=== PATIENT | female | born 1990 | race American Indian/Alaskan Native ===

== ENCOUNTER 2021-01-07 17:15 | Emergency (ER) | payer OTHER ==
[2021-01-07 17:34] VITALS: BP 131/82
[2021-01-07] MEDS ORDERED: SODIUM CHLORIDE 0.9% 1000 ML 1,000 ML IV ONE (20:12)
[2021-01-07] MEDS ORDERED: KETOROLAC 30 MG/1 ML INJ IV ONE (20:12)
[2021-01-07] MEDS ORDERED: METOCLOPRAMIDE 10 MG/2 ML INJ IV ONE (20:14)
[2021-01-07] MEDS ORDERED: diphenhydrAMINE 50 MG/ML VIAL IV ONE (20:14)
[2021-01-07 20:55] LABS: Basophils # (Auto) 0.2 K/mm3 (0.0-0.1); Basophils % (Auto) 1.2 % (0.0-1.8); Eosinophils # (Auto) 0.7 K/mm3 (0.0-0.4); Eosinophils % (Auto) 3.5 % (0.0-4.3); Hematocrit 35.3 % (30.3-42.9); Hemoglobin 11.6 gm/dl (10.1-14.3); Lymphocytes # (Auto) 3.1 K/mm3 (1.2-5.4); Lymphocytes % (Auto) 15.7 % (13.4-35.0); Mean Corpuscular HGB Conc 33 % (30-34); Mean Corpuscular Volume 80 fl (79-97); Monocytes # (Auto) 1.9 K/mm3 (0.0-0.8); Monocytes % (Auto) 9.7 % (0.0-7.3); Platelet Count 435 K/mm3 (140-440); Red Blood Count 4.42 M/mm3 (3.65-5.03); Red Cell Distribution Width 14.6 % (13.2-15.2)
[2021-01-07 20:57] LABS: Alanine Aminotransferase 11 units/L (7-56); Albumin 4.3 g/dL (3.9-5); Blood Urea Nitrogen 9 mg/dL (7-17); Calcium 8.9 mg/dL (8.4-10.2); Hemolysis Index 16
[2021-01-07 21:00] LABS: BUN/Creatinine Ratio 13
--- NOTE | 2021-01-07 21:40 | Cat Scan Report ---
CT head/brain wo con INDICATION: Patient complains of a headache. TECHNIQUE: Routine CT head. All CT scans at this location are performed using CT dose reduction for A LENCHO by means of automated exposure control. COMPARISON: None. FINDINGS: Intracranial: Jimenez-white matter differentiation is maintained. No intracranial hemorrhage. No extra a xial collection. No hydrocephalus. No herniation. Sinuses: Paranasal sinuses and mastoid air cells are essentially clear. Orbits: Globes are intact. Calvarium: No acute fracture. IMPRESSION: 1. No acute intracranial abnormality. Signer Name: Boy Castorena MD Signed: 01/07/2021 9:35 PM Workstation Name: [id number]
--- NOTE | 2021-01-07 23:11 | XRay Report ---
CHEST 1 VIEW INDICATION / CLINICAL INFORMATION: cough. FINDINGS: SUPPORT DEVICES: None. HEART / MEDIASTINUM: No significant abnormality. LUNGS / PLEURA: No significant pulmonary or pleural abnormality. No pneumothorax. ADDITIONAL FINDINGS: No significant additional findings. IMPRESSION: 1. No acute findings. Signer Name: Bebo Momin MD Signed: 01/07/2021 11:07 PM Workstation Name: [id number]
[2021-01-07 23:13] LABS: Bilirubin,Urine NEG (Negative); Blood,Urine NEG (Negative); Color,Urine Straw (Yellow); Hyaline Casts,Urine 1 /LPF; Protein,Urine <15 mg/dL mg/dL (Negative); Urobilinogen,Urine < 2.0 mg/dL (<2.0)
--- NOTE | 2021-01-07 23:51 | Emergency Department Report ---
ED General Adult HPI - General Chief complaint: Headache Stated complaint: EYE PAINS Source: patient Mode of arrival: Ambulatory Limitations: No Limitations - History of Present Illness Initial comments: Patient is a 30-year-old -Mosotho female with no past medical history presents to the ED with complaint of acute onset persistent severe frontal sinus pressure and headache, nausea and vomiting, lack of appetite for the last 1 month, worse in the last 5 days. Patient states that she has previously been evaluated at [facility] emergency department for the same complaints in the last 1 month, and was advised that there was no acute abnormalities found. Patient also complains of persistent nasal and sinus congestion. Patient states that in the last 3 days she has not been able to eat because of intractable nausea and vomiting and worsening headache. Patient denies dizziness, syncope, palpitations, fever, chills, cough, sore throat, diarrhea, abdominal pain, chest pain, shortness of breath, traumatic injury or fall, neck pain, dysuria, urinary frequency and urgency or change in vision. MD Complaint: severe frontal headache, nausea and vomiting -: Sudden, month(s) (1) Location: head, face Radiation: non-radiation Severity scale (0 -10): 8 Quality: aching, sharp Consistency: constant Improves with: none Worsens with: none Associated Symptoms: denies other symptoms, headaches, loss of appetite, malaise, nausea/vomiting. denies: confusion, chest pain, cough, diaphoresis, fever/chills, rash, seizure, shortness of breath, syncope, weakness Treatments Prior to Arrival: none - Related Data Previous Rx's Medication Instructions Recorded Last Taken Type Amoxicillin/Potassium Clav 1 each PO Q12H #20 tablet 01/07/21 Unknown Rx [Augmentin 875-125 Tablet] Butalb/Acetamin/Caff 50-325-40 1 - 2 tab PO Q6HR PRN #15 tab 01/07/21 Unknown Rx [Fioricet 50-325-40] Ketorolac [Toradol] 10 mg PO Q8H PRN #20 tablet 01/07/21 Unknown Rx Promethazine [Phenergan] 25 mg PO Q6HR PRN #30 tab 01/07/21 Unknown Rx Allergies Allergy/AdvReac Type Severity Reaction Status Date / Time No Known Allergies Allergy Verified 01/07/21 17:34 ED Review of Systems ROS: Stated complaint: EYE PAINS Other details as noted in HPI Constitutional: denies: chills, fever Eyes: denies: eye pain, eye discharge, vision change ENT: congestion, other (Left sided frontal sinus pressure and pain). denies: ear pain, throat pain Respiratory: denies: cough, shortness of breath, SOB with exertion, stridor, wheezing Cardiovascular: denies: chest pain, palpitations Endocrine: no symptoms reported Gastrointestinal: nausea, vomiting. denies: abdominal pain, diarrhea Genitourinary: denies: urgency, dysuria, discharge Musculoskeletal: denies: back pain, joint swelling, arthralgia Skin: denies: rash, lesions Neurological: headache (Left-sided frontal sinus headache). denies: weakness, paresthesias Psychiatric: denies: anxiety, depression Hematological/Lymphatic: denies: easy bleeding, easy bruising ED Past Medical Hx - Medications Home Medications: Home Medications Medication Instructions Recorded Confirmed Last Taken Type Amoxicillin/Potassium Clav 1 each PO Q12H #20 tablet 01/07/21 Unknown Rx [Augmentin 875-125 Tablet] Butalb/Acetamin/Caff 50-325-40 1 - 2 tab PO Q6HR PRN #15 tab 01/07/21 Unknown Rx [Fioricet 50-325-40] Ketorolac [Toradol] 10 mg PO Q8H PRN #20 tablet 01/07/21 Unknown Rx Promethazine [Phenergan] 25 mg PO Q6HR PRN #30 tab 01/07/21 Unknown Rx ED Physical Exam - General Limitations: No Limitations General appearance: alert, in no apparent distress - Head Head exam: Present: atraumatic, normocephalic, normal inspection - Eye Eye exam: Present: normal appearance, PERRL, EOMI Pupils: Present: normal accommodation - ENT ENT exam: Present: normal orophraynx, mucous membranes moist, normal external ear exam, other (Palpable severe left maxillary and frontal sinus tenderness; grossly congested nasal passages) - Neck Neck exam: Present: normal inspection, full ROM. Absent: tenderness, lymphadenopathy - Respiratory Respiratory exam: Present: normal lung sounds bilaterally. Absent: respiratory distress, wheezes, chest wall tenderness, accessory muscle use, decreased breath sounds, prolonged expiratory - Cardiovascular Cardiovascular Exam: Present: regular rate, normal rhythm, normal heart sounds. Absent: systolic murmur, diastolic murmur, rubs, gallop - GI/Abdominal GI/Abdominal exam: Present: soft, normal bowel sounds. Absent: tenderness, guarding, rebound, hyperactive bowel sounds, hypoactive bowel sounds, organomegaly, bruit - Extremities Exam Extremities exam: Present: normal inspection, full ROM, normal capillary refill - Back Exam Back exam: Present: normal inspection, full ROM. Absent: tenderness, CVA tenderness (R), CVA tenderness (L), muscle spasm, paraspinal tenderness - Neurological Exam Neurological exam: Present: alert, oriented X3, CN II-XII intact, normal gait, reflexes normal - Psychiatric Psychiatric exam: Present: normal affect, normal mood, anxious - Skin Skin exam: Present: warm, dry, intact, normal color. Absent: rash ED Course Vital Signs 01/07/21 17:34 Temperature 98 F Pulse Rate 65 Respiratory 18 Rate Blood Pressure 131/82 [Left] O2 Sat by Pulse 100 Oximetry ED Medical Decision Making - Lab Data Result diagrams: 01/07/21 20:20 01/07/21 20:20 - Radiology Data Radiology results: report reviewed, image reviewed - Medical Decision Making This is a 30-year-old -Mosotho female with no past medical history presents to the ED with complaint of acute onset persistent severe frontal sinus pressure and headache, nausea and vomiting, lack of appetite for the last 1 month, worse in the last 5 days. Patient states that she has previously been evaluated at [facility] emergency department for the same complaints in the last 1 month, and was advised that there was no acute abnormalities found. Patient also complains of persistent nasal and sinus congestion. Patient states that in the last 3 days she has not been able to eat because of intractable nausea and vomiting and worsening headache. In the ED, patient is alert and oriented x3 and is not in any distress but appears to be in significant pain and is anxious during the physical exam. Patient was treated for pain in the ED and also received antiemetics and normal saline 1 L IV bolus x1. Lab test results were reviewed and showed acute leukocytosis of 19,800 which is likely reactive due to intractable nausea and vomiting. The rest of the lab test results including urinalysis was unremarkable. Chest x-ray showed no acute cardiopulmonary abnormalities or pneumonitis. The head CT scan without contrast showed no acute intracranial abnormalities or hemorrhage. On reevaluation, patient's pain resolved medication. Patient has not had any nausea or vomiting while in the ED. Patient was therefore discharged home on medications and advised to follow-up with her primary care physician in 5 to 7 days for reevaluation or return to the ED immediately if symptoms get worse. - Differential Diagnosis Frontal sinusitis; sinus headache, dehydration; URI; migraine headache Critical care attestation.: If time is entered above; I have spent that time in minutes in the direct care of this critically ill patient, excluding procedure time. ED Disposition Clinical Impression: Sinus headache, Nausea and vomiting in adult patient Acute frontal sinusitis, unspecified Qualifiers: Recurrence: non-recurrent Qualified Code(s): J01.10 - Acute frontal sinusitis, unspecified Leukocytosis, unspecified Qualifiers: Leukocytosis type: unspecified Qualified Code(s): D72.829 - Elevated white blood cell count, unspecified Disposition: TO HOME OR SELFCARE Is pt being admited?: No Does the pt Need Aspirin: No Condition: Stable Instructions: Sinusitis, Adult, [id number], Nausea and Vomiting, Adult, Thnb-hq-[id number], Upper Respiratory Infection, Adult, [id number], Sinus Headache, [id number] Additional Instructions: All lab test results were reviewed and are all nonactionable except for leukocytosis which is likely reactive due to intractable nausea and vomiting in the last [address] scan without contrast showed no acute intracranial abnormalities or hemorrhage. Chest x-ray showed no acute cardiopulmonary abnormalities or pneumonitis. Therefore take medications with food, drink plenty of fluids and follow-up with your primary care physician in 5 to 7 days for reevaluation. Return to the ED immediately if symptoms get worse. Prescriptions: Amoxicillin/Potassium Clav [Augmentin 875-125 Tablet] 1 each PO Q12H #20 tablet Butalb/Acetamin/Caff 50-325-40 [Fioricet 50-325-40] 1 - 2 tab PO Q6HR PRN #15 tab PRN Reason: Headache Promethazine [Phenergan] 25 mg PO Q6HR PRN #30 tab PRN Reason: Nausea Ketorolac [Toradol] 10 mg PO Q8H PRN #20 tablet PRN Reason: Pain Referrals: [facility] [Provider Group] - 3-5 Days Forms: Work/School Release Form(ED) Time of Disposition: 23:56 Print Language: INDONESIAN
== END 2021-01-08 00:10 | disposition home or self-care (01) ==
LOC: ED 17:15
DX: J01.10 Acute frontal sinusitis, unspecified (principal); D72.829 Elevated white blood cell count, unspecified; R11.2 Nausea with vomiting, unspecified
CPT/HCPCS: 36415; 70450; 71045; 80053; 81001; 85025; 96361; 96374; 96375; 99284; J1200; J1885; J2765; J7030

== ENCOUNTER 2022-02-06 16:41 | Emergency (ER) | payer MEDICAID, OTHER ==
[2022-02-06 20:11] LABS: Basophils # (Auto) 0.1 K/mm3 (0.0-0.1); Basophils % (Auto) 1.2 % (0.0-1.8); Eosinophils # (Auto) 0.2 K/mm3 (0.0-0.4); Eosinophils % (Auto) 1.5 % (0.0-4.3); Hemoglobin 11.4 gm/dl (10.1-14.3); Lymphocytes # (Auto) 3.7 K/mm3 (1.2-5.4); Lymphocytes % (Auto) 33.6 % (13.4-35.0); Mean Corpuscular HGB Conc 32 % (30-34); Mean Corpuscular Volume 81 fl (79-97); Monocytes % (Auto) 9.4 % (0.0-7.3); Platelet Count 329 K/mm3 (140-440); Red Blood Count 4.45 M/mm3 (3.65-5.03); Red Cell Distribution Width 14.8 % (13.2-15.2)
[2022-02-06 20:28] LABS: BUN/Creatinine Ratio 11; Blood Urea Nitrogen 9 mg/dL (7-17); Calcium 9.3 mg/dL (8.4-10.2); Hemolysis Index 7
[2022-02-07] MEDS ORDERED: SULFAMETHOXAZOLE/TRIMETHOPRIM 800/160MG DS TAB PO ONE (11:29)
--- NOTE | 2022-02-07 11:35 | Emergency Department Report ---
ED Psych HPI - General Chief Complaint: Psych Stated Complaint: EYE/HEART ISSUE Time Seen by Provider: 02/07/22 11:11 Source: patient, family Mode of arrival: Ambulatory Limitations: No Limitations - History of Present Illness Initial Comments: 31-year-old female with a past medical history of PTSD and depression presents to the hospital with psychiatric and medical complaints. Patient states she is status post delivery September 28, 2021 and was diagnosed with depression. She received approximately 14 tablets of unknown medication and has not followed up for outpatient psychiatric care. She continues to feel depressed and continues to abuse cocaine last use couple days ago. She does not endorse suicidal homicidal ideation. Her child is currently under her care and she resides with her mother. She also endorses marijuana use but denies alcohol or other substance addiction. Patient also complains of a left axillary boil x1 week that started draining 2 days ago. Patient has been expressing purulent drainage from the abscess. No reports of fever. Tetanus status unknown but thinks her vaccines are up-to-date. Patient's mother at the bedside - Related Data Previous Rx's Medication Instructions Recorded Last Taken Type Amoxicillin/Potassium Clav 1 each PO Q12H #20 tablet 01/07/21 Unknown Rx [Augmentin 875-125 Tablet] Butalb/Acetamin/Caff 50-325-40 1 - 2 tab PO Q6HR PRN #15 tab 01/07/21 Unknown Rx [Fioricet 50-325-40] Ketorolac [Toradol] 10 mg PO Q8H PRN #20 tablet 01/07/21 Unknown Rx Promethazine [Phenergan] 25 mg PO Q6HR PRN #30 tab 01/07/[address] [DepaKOTE ] 125 mg PO BID #60 tablet 02/07/22 Unknown Rx Ibuprofen [Motrin] 800 mg PO Q8HR PRN #20 tablet 02/07/22 Unknown Rx Sulfamethoxazole/Trimethoprim 1 each PO BID #20 tab 02/07/22 Unknown Rx [Bactrim DS TAB] Allergies Allergy/AdvReac Type Severity Reaction Status Date / Time No Known Allergies Allergy Verified 01/07/21 17:34 ED Review of Systems ROS: Stated complaint: EYE/HEART ISSUE Other details as noted in HPI Comment: All other systems reviewed and negative ED Past Medical Hx - Past Medical History Previous Medical History?: Yes Hx Psychiatric Treatment: Yes - Surgical History Past Surgical History?: No - Social History Smoking Status: Never Smoker Substance Use Type: Cocaine - Medications Home Medications: Home Medications Medication Instructions Recorded Confirmed Last Taken Type Amoxicillin/Potassium Clav 1 each PO Q12H #20 tablet 01/07/21 Unknown Rx [Augmentin 875-125 Tablet] Butalb/Acetamin/Caff 50-325-40 1 - 2 tab PO Q6HR PRN #15 tab 01/07/21 Unknown Rx [Fioricet 50-325-40] Ketorolac [Toradol] 10 mg PO Q8H PRN #20 tablet 01/07/21 Unknown Rx Promethazine [Phenergan] 25 mg PO Q6HR PRN #30 tab 01/07/[address] [DepaKOTE DR] 125 mg PO BID #60 tablet 02/07/22 Unknown Rx Ibuprofen [Motrin] 800 mg PO Q8HR PRN #20 tablet 02/07/22 Unknown Rx Sulfamethoxazole/Trimethoprim 1 each PO BID #20 tab 02/07/22 Unknown Rx [Bactrim DS TAB] ED Physical Exam - General Limitations: No Limitations - Other Other exam information: General: No acute distress Head: Atraumatic Eyes: normal appearance ENT: Moist mucous membranes Neck: Normal appearance, no midline tenderness Chest: Clear to auscultation bilaterally CV: Regular rate and rhythm Abdomen: Soft, normal bowel sounds, nontender, nondistended, no rebound or guarding Back: Normal inspection Extremity: Normal inspection, full range of motion Neuro: Alert O x 3, no facial asymmetry, speech clear, no gross motor sensory deficit Psych: Appropriate behavior Skin: abscess under left axilla with purulent drainage ED Course Vital Signs 02/07/22 02/07/22 02/07/22 10:09 12:49 14:13 Temperature 98.3 F Pulse Rate 68 71 78 Respiratory 18 18 18 Rate Blood Pressure 91/66 94/67 108/61 [Left] O2 Sat by Pulse 100 100 99 Oximetry ED Medical Decision Making - Lab Data Result diagrams: 02/06/22 Unknown 02/06/22 Unknown Lab Results 02/06/22 02/06/22 02/06/22 Range/Units Unknown Unknown Unknown WBC (4.5-11.0) K/mm3 RBC (3.65-5.03) M/mm3 Hgb (10.1-14.3) gm/dl Hct (30.3-42.9) % MCV (79-97) fl MCH (28-32) pg MCHC (30-34) % RDW (13.2-15.2) % Plt Count (140-440) K/mm3 Lymph % (Auto) (13.4-35.0) % [place] % (Auto) (0.0-7.3) % Eos % (Auto) (0.0-4.3) % Baso % (Auto) (0.0-1.8) % Lymph # (Auto) (1.2-5.4) K/mm3 [place] # (Auto) (0.0-0.8) K/mm3 Eos # (Auto) (0.0-0.4) K/mm3 Baso # (Auto) (0.0-0.1) K/mm3 Seg Neutrophils % (40.0-70.0) % Seg Neutrophils # (1.8-7.7) K/mm3 Sodium 140 (137-145) mmol/L Potassium 4.2 (3.6-5.0) mmol/L Chloride 103.7 (98-107) mmol/L Carbon Dioxide 27 (22-30) mmol/L Anion Gap 14 mmol/L BUN 9 (7-17) mg/dL Creatinine 0.8 (0.6-1.2) mg/dL Estimated GFR > 60 ml/min BUN/Creatinine Ratio 11 % Glucose 75 (65-100) mg/dL Calcium 9.3 (8.4-10.2) mg/dL Salicylates < 0.3 L (2.8-20.0) mg/dL Acetaminophen 5.0 L (10.0-30.0) ug/mL Plasma/Serum Alcohol (0-0.07) % 02/06/22 02/06/22 Range/Units Unknown Unknown WBC 10.9 (4.5-11.0) K/mm3 RBC 4.45 (3.65-5.03) M/mm3 Hgb 11.4 (10.1-14.3) gm/dl Hct 36.0 (30.3-42.9) % MCV 81 (79-97) fl MCH 26 L (28-32) pg MCHC 32 (30-34) % RDW 14.8 (13.2-15.2) % Plt Count 329 (140-440) K/mm3 Lymph % (Auto) 33.6 (13.4-35.0) % [place] % (Auto) 9.4 H (0.0-7.3) % Eos % (Auto) 1.5 (0.0-4.3) % Baso % (Auto) 1.2 (0.0-1.8) % Lymph # (Auto) 3.7 (1.2-5.4) K/mm3 [place] # (Auto) 1.0 H (0.0-0.8) K/mm3 Eos # (Auto) 0.2 (0.0-0.4) K/mm3 Baso # (Auto) 0.1 (0.0-0.1) K/mm3 Seg Neutrophils % 54.3 (40.0-70.0) % Seg Neutrophils # 5.9 (1.8-7.7) K/mm3 Sodium (137-145) mmol/L Potassium (3.6-5.0) mmol/L Chloride (98-107) mmol/L Carbon Dioxide (22-30) mmol/L Anion Gap mmol/L BUN (7-17) mg/dL Creatinine (0.6-1.2) mg/dL Estimated GFR ml/min BUN/Creatinine Ratio % Glucose (65-100) mg/dL Calcium (8.4-10.2) mg/dL Salicylates (2.8-20.0) mg/dL Acetaminophen (10.0-30.0) ug/mL Plasma/Serum Alcohol < 0.01 (0-0.07) % urine results reviewed. - Medical Decision Making Patient presents with a left axillary abscess. Offered I&D but declined states it is already draining. Warm compresses encouraged. Antibiotics will be prescribed her first dose of Bactrim provided in the ED. Patient was evaluated by mental health wool scourer and does not meet 1013 criteria. Depakote has been restarted. uds pending and does not affect dispo Critical Care Time: No Critical care attestation.: If time is entered above; I have spent that time in minutes in the direct care of this critically ill patient, excluding procedure time. ED Disposition Clinical Impression: Depression, Cocaine abuse, Abscess of axilla, left Disposition: HOME / SELF CARE / HOMELESS Is pt being admited?: No Condition: Stable Instructions: Skin Abscess, Living With Depression, Stimulant Use Disorder- Cocaine Additional Instructions: Continue to apply warm compresses to your abscess to encourage drainage. Take the antibiotics as prescribed. Return if symptoms worsen as indicated by your discharge instructions In case of an emergency, please contact the following numbers: [place] Crisis and Access Line:w Number: Crisis Text Line: (Text START) Number: [phone] Suicide Prevention Line: Number: Emergency Number: 911 SUBSTANCE ABUSE PROGRAMS: [facility] Maria Dolores: Location: [place], [place] [facility] Address: [address] [place] [address] [facility] Recovery: Address: [address] [place] [address] [facility]: Address: [address] [place] [address] [facility] Community: Address: [address] [place] [address] [facility] Address: [address] [place] [address]. Please contact above numbers to attempt placement into free based program. Medicaid Programs: [facility]: Address: [address] [place] [address] [facility]: Address: [address] [place] [address] OUTPATIENT MENTAL HEALTH RESOURCES [facility], [facility] Michael Bonilla MD: [address], [address] [place] [address] [place] [address] [facility]: [facility] [address] [place] [address] [place] [address] [phone] [facility]: [facility] Healthcare: [address] [facility] [address] [place] [address] [place] [address] [facility] [id number] [facility]: Omid Aburto MD: [address] [facility] [address] [facility] [id number] [place] [facility]: [address] [place] [address] [phone] [place] CRISIS AND ACCESS LINE: Prescriptions: Sulfamethoxazole/Trimethoprim [Bactrim DS TAB] 1 each PO BID #[address] [DepaKOTE DR] 125 mg PO BID #60 tablet Ibuprofen [Motrin] 800 mg PO Q8HR PRN #20 tablet PRN Reason: Pain , Severe (7-10) Referrals: PRIMARY [facility] [Primary Care Provider] - 3-5 Days MARLIN CASAREZ MD [Staff Physician] - 3-5 Days [facility] [Provider Group] - 3-5 Days Time of Disposition: 14:17
--- NOTE | 2022-02-07 12:10 | Progress Note ---
Subjective - Reason for Consult Consult date: 02/07/22 Reason for consult: depression - Chief Complaint Chief complaint: The patient was today. She is calm and cooperative. Her mother is at bedside. The patient gives me permission to speak in front of her mother. The patient says she came to the ER "to have a risen looked at under my arm." She then says she has a history of PTSD, depression and bipolar. She says she's been off her meds. The patient says the last thing she took was depakote, and states that it had her feeling mellow and made her feel normal. Discussed with the patient getting back on it. She also endorses cocaine use. The patient denies SI/HI. She says at some point she's had thoughts but denies at present. She denies hallucinations, but states "I do sometimes, but I guess you can say it's when I do the drugs." REVIEW OF SYSTEMS Constitutional: Negative for weight loss ENT: Negative for stridor Respiratory: Negative for cough or hemoptysis All other systems reviewed and are negative MENTAL STATUS General Appearance and Behavior: age appropriate, good eye contact, cooperative with questioning and polite Cooperation: Cooperative Psychomotor Behavior: within normal limits Mood: okay Affect and affective range: Congruent with stated mood Thought Process: goal directed Thought Content: None Speech: Normal volume and Regular rate and rhythm Suicidal Ideation: Denies SI Homicidal Ideation: Denies HI Hallucinations: denies Impulse Control: intact Insight and Judgment: Limited Memory: Normal Attention: Normal Orientation: alert and oriented Assessment Bipolar Disorder Cocaine Use Disorder Treatment Plan Depakote DR 125mg po BID Medical: Per primary Disposition: Do not recommend acute psychiatric inpatient treatment The patient to follow up with outpatient psych in 7 to 14 days She is to abstain from all illicit drug use The padded products inspector trimmer to give all necessary resources including rehab Will sign off. Thanks Case staffed with Dr. Medeiros Mental Status Exam - Vital signs Last Vital Signs Temp 98.3 F 02/07/22 10:09 Pulse 68 02/07/22 10:09 Resp 18 02/07/22 10:09 BP 91/66 02/07/22 10:09 Pulse Ox 100 02/07/22 10:09
[2022-02-07 13:54] LABS: Color,Urine Yellow (Yellow)
[2022-02-07 13:57] LABS: Bilirubin,Urine Negative (Negative); Blood,Urine Trace (Negative); Urobilinogen,Urine < 2.0 mg/dL (<2.0)
[2022-02-07 13:58] LABS: HCG Qualitative,Urine Negative (Negative)
[2022-02-07 14:13] VITALS: BP 108/61
== END 2022-02-07 14:36 | disposition home or self-care (01) ==
LOC: ED 16:41
DX: F32.A Depression, unspecified (principal); L02.422 Furuncle of left axilla; F14.10 Cocaine abuse, uncomplicated; Z13.30 Encounter for screening examination for mental health and behavioral disorders, unspecified; Z79.899 Other long term (current) drug therapy
CPT/HCPCS: 36415; 80048; 80320; 81001; 81025; 85025; 99284; G0480